=== PATIENT | female | born 1970 | race Caucasian/White ===

== ENCOUNTER 2017-05-11 14:25 | Emergency (ER) | payer OTHER ==
[2017-05-11 14:36] VITALS: BP 144/93; PULSE 89; TEMP 98.2; BMI 31.1
[2017-05-11] MEDS ORDERED: IBUPROFEN 600 MG TABLET (FP) PO ONE ×2 (15:16→15:26)
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
== END 2017-05-11 15:44 | disposition home or self-care (01) ==
LOC: EDBD → FER 14:25
DX: V43.62XA Car passenger injured in collision with other type car in traffic accident, initial encounter (principal); Y93.89 Activity, other specified; Y92.410 Unspecified street and highway as the place of occurrence of the external cause
CPT/HCPCS: 99282-25